=== PATIENT | male | born 1985 | race Caucasian/White ===

== ENCOUNTER 2018-09-11 07:20 | Emergency (ER) | payer MEDICAID ==
[~2018-09-11] VITALS: Ht 177.8 cm; Wt 59.3 kg
[~2018-09-11 07:20] MED LIST: CHLO25CA10 PO; GABA-532 PO
[2018-09-11 07:32] VITALS: BP 112/80
[2018-09-11] MEDS ORDERED: dexamethasone sod phosphate 10mg/ml inj PO STA (07:45)
[2018-09-11] MEDS ORDERED: PRED20TA PO (07:47)
[2018-09-11] MEDS ORDERED: DOXY100C43 PO (07:47)
== END 2018-09-11 08:11 | disposition home or self-care (01) ==
LOC: ER 07:20
DX: L23.7 Allergic contact dermatitis due to plants, except food (principal); F17.210 Nicotine dependence, cigarettes, uncomplicated; F12.90 Cannabis use, unspecified, uncomplicated; Z79.2 Long term (current) use of antibiotics; Z79.899 Other long term (current) drug therapy
CPT/HCPCS: 99283; J1100